=== PATIENT | female | born 1955 | race African-American/Black ===

== ENCOUNTER 2022-07-23 08:48 | Inpatient (IN) | payer MEDICARE, MEDICAID ==
[~2022-07-23] VITALS: Ht 157.5 cm; Wt 79.6 kg
[2022-07-23] MEDS ORDERED: ONDANSETRON HCL 4MG/2ML INJ IV STA (09:06)
[2022-07-23] MEDS ORDERED: SODIUM CHLORIDE 0.9% 1,000 ML IV ONE ×2 (09:15→11:30)
[2022-07-23 10:28] LABS: BASOPHILS % 0.5 % (0.0-2.0); EOSINOPHILS % 1.1 % (0.0-5.0); HEMATOCRIT. 36.1 % (36.0-48.0); HEMOGLOBIN. 11.5 g/dL (12.0-16.0); LYMPHOCYTES % 15.1 % (20.0-50.0); MEAN CORPUSCULAR HEMOGLOBIN 27.3 pg (28.0-32.0); MEAN CORPUSCULAR VOLUME 85.7 fL (81.0-99.0); MEAN PLATELET VOLUME 7.9 fl (7.4-10.4); MONOCYTES % 7.1 % (2.0-8.0); NEUTROPHILS % 76.2 % (40.0-76.0); PLATELET 251 x1000/uL (130-400); RED BLOOD CELL COUNT 4.21 mill/uL (4.2-5.4); RED CELL DISTRIBUTION WIDTH 14.7 % (11.6-14.6)
[2022-07-23 10:37] LABS: CHLORIDE 108 mEq/L (98-107)
[2022-07-23] MEDS ORDERED: ASPIRIN 325MG EC TABLET PO ONE (11:30)
[2022-07-23] MEDS ORDERED: MECLIZINE 25MG TABLET PO ONE (11:30)
[2022-07-23] MEDS ORDERED: ONDANSETRON 4MG ODT PO STA (11:30)
[2022-07-23 12:53] LABS: CLARITY URINE CLOUDY (CLEAR); COLOR URINE YELLOW (YELLOW); KETONES URINE NEGATIVE (NEGATIVE); LEUKOCYTE ESTERASE URINE TRACE (NEGATIVE); NITRITE URINE NEGATIVE (NEGATIVE); OCCULT BLOOD URINE NEGATIVE (NEGATIVE); PH URINE 7.5 (4.5-8.0); PROTEIN URINE TRACE (NEGATIVE); SPECIFIC GRAVITY URINE 1.022 (1.005-1.030); UROBILINOGEN URINE 0.2 E.U./dL (0.2-1.0)
[2022-07-23] MEDS ORDERED: ONDANSETRON 4MG ODT PO SCH (14:15)
[2022-07-23] MEDS ORDERED: ASPIRIN 325MG EC TABLET PO SCH (14:15)
[2022-07-23] MEDS ORDERED: MECLIZINE 25MG TABLET PO SCH (14:15)
[2022-07-23 15:06] VITALS: BP 155/102
[2022-07-23] MEDS ORDERED: ATOR10TA69 PO (15:25)
[2022-07-23] MEDS ORDERED: LOSA25TA26 PO (15:25)
[2022-07-23] MEDS ORDERED: TOPUD PO (15:25)
[2022-07-23] MEDS ORDERED: ASPI-1497 PO (15:25)
[2022-07-23] MEDS ORDERED: METF-414 PO (15:25)
[2022-07-23 15:58] VITALS: BP 151/75
[2022-07-23] MEDS ORDERED: MAGNESIUM/ALUMINUM HYDROXIDE/SIMETHICONE 30ML UDC PO PRN (18:45)
[2022-07-23] MEDS ORDERED: CLONIDINE 0.1MG TABLET PO PRN (18:45)
[2022-07-23] MEDS ORDERED: GUAIFENESIN 200MG/10ML SUGAR FREE UDC PO PRN (18:45)
[2022-07-23] MEDS ORDERED: ACETAMINOPHEN 325MG TABLET PO PRN ×2 (18:45)
[2022-07-23] MEDS ORDERED: IPRATROPIUM/ALBUTEROL 0.5-3(2.5)MG/3ML NEB HHN PRN (18:45)
[2022-07-23] MEDS ORDERED: ONDANSETRON HCL 4MG/2ML INJ IV PRN (18:45)
[2022-07-23] MEDS ORDERED: NALOXONE HCL 0.4MG/ML VIAL IV PRN (19:00)
[2022-07-23 20:00] VITALS: BP 119/67
[2022-07-23] MEDS: ENOXAPARIN 30MG/0.3ML SYR SUBCUT SCH (20:36)
[2022-07-23] MEDS: HYDROCODONE/ACETAMINOPHEN 5/325MG TABLET PO PRN (20:36)
[2022-07-24] VITALS: BP 108/59
[2022-07-24 04:00] VITALS: BP 113/58
[2022-07-24 08:00] VITALS: BP 137/76
[2022-07-24 08:17] LABS: BASOPHILS % 0.5 % (0.0-2.0); EOSINOPHILS % 2.4 % (0.0-5.0); HEMATOCRIT. 34.7 % (36.0-48.0); HEMOGLOBIN. 11.3 g/dL (12.0-16.0); LYMPHOCYTES % 31.9 % (20.0-50.0); MEAN CORPUSCULAR HEMOGLOBIN 27.8 pg (28.0-32.0); MEAN CORPUSCULAR VOLUME 85.6 fL (81.0-99.0); MEAN PLATELET VOLUME 8.4 fl (7.4-10.4); MONOCYTES % 8.6 % (2.0-8.0); NEUTROPHILS % 56.6 % (40.0-76.0); PLATELET 257 x1000/uL (130-400); RED BLOOD CELL COUNT 4.06 mill/uL (4.2-5.4)
[2022-07-24 08:20] LABS: CHLORIDE 109 mEq/L (98-107)
[2022-07-24 08:35] LABS: PHOSPHORUS 3.6 mg/dL (2.5-4.9); T4 FREE 0.95 ng/dL (0.76-1.46); TOTAL IRON BINDING CAPACITY 250 ug/dL (250-450)
[2022-07-24] MEDS: ENOXAPARIN 30MG/0.3ML SYR SUBCUT SCH ×2 (09:18→20:13)
[2022-07-24 12:00] VITALS: BP 141/60
[2022-07-24 15:20] LABS: FERRITIN 36 ng/mL (10-291)
[2022-07-24 16:00] VITALS: BP 133/64
[2022-07-24 16:34] LABS: FOLIC ACID (FOLATE) SERUM > 20.00 ng/mL (>5.38)
[2022-07-24] MEDS ORDERED: GADOTERATE MEGLUMINE 5 MMOL/10 ML VIAL IV ONE (19:07)
[2022-07-24 20:00] VITALS: BP 143/74
[2022-07-24] MEDS: HYDROCODONE/ACETAMINOPHEN 5/325MG TABLET PO PRN (20:34)
[2022-07-25] VITALS: BP 130/53
[2022-07-25 04:00] VITALS: BP 137/67
[2022-07-25 07:34] LABS: BASOPHILS % 0.5 % (0.0-2.0); EOSINOPHILS % 2.5 % (0.0-5.0); HEMATOCRIT. 35.6 % (36.0-48.0); HEMOGLOBIN. 11.5 g/dL (12.0-16.0); LYMPHOCYTES % 25.6 % (20.0-50.0); MEAN CORPUSCULAR HEMOGLOBIN 27.4 pg (28.0-32.0); MEAN PLATELET VOLUME 8.3 fl (7.4-10.4); MONOCYTES % 8.6 % (2.0-8.0); NEUTROPHILS % 62.8 % (40.0-76.0); PLATELET 277 x1000/uL (130-400); RED BLOOD CELL COUNT 4.19 mill/uL (4.2-5.4); RED CELL DISTRIBUTION WIDTH 14.8 % (11.6-14.6)
[2022-07-25 08:00] VITALS: BP 137/72
[2022-07-25] MEDS: ENOXAPARIN 30MG/0.3ML SYR SUBCUT SCH ×2 (09:01→20:25)
[2022-07-25 09:02] LABS: CHLORIDE 108 mEq/L (98-107)
[2022-07-25 09:06] LABS: ALPHA-1-GLOBULIN 0.2 g/dL (0.0-0.4); ALPHA-2-GLOBULIN 0.8 g/dL (0.4-1.0); BETA GLOBULIN 1.1 g/dL (0.7-1.3); GAMMA GLOBULINS 0.9 g/dL (0.4-1.8); M-SPIKE Not Observed g/dL (Not Observed)
[2022-07-25] MEDS: LOSARTAN POTASSIUM 25 MG TABLET PO SCH (11:45)
[2022-07-25 12:00] VITALS: BP 143/72
[2022-07-25 16:00] VITALS: BP 119/54
[2022-07-25 20:00] VITALS: BP 127/66
[2022-07-25] MEDS: ATORVASTATIN CALCIUM 10MG TABLET PO SCH (20:25)
[2022-07-25] MEDS: CLOPIDOGREL 75MG TABLET PO SCH (20:52)
[2022-07-25] MEDS: ASPIRIN 81MG EC TABLET PO SCH (20:52)
[2022-07-26] VITALS (7 sets, daily range): BP systolic 118–141; BP diastolic 58–77
[2022-07-26] MEDS: ENOXAPARIN 30MG/0.3ML SYR SUBCUT SCH ×2 (09:53→20:04)
[2022-07-26] MEDS: ASPIRIN 81MG EC TABLET PO SCH (09:54)
[2022-07-26] MEDS: LOSARTAN POTASSIUM 25 MG TABLET PO SCH (09:54)
[2022-07-26] MEDS: CLOPIDOGREL 75MG TABLET PO SCH (09:54)
[2022-07-26 13:07] LABS: ANA IFA Negative (.)
[2022-07-26 18:46] LABS: VITAMIN B12 SERUM > 2000 pg/mL (211-911)
[2022-07-26] MEDS: ATORVASTATIN CALCIUM 10MG TABLET PO SCH (20:04)
== END 2022-07-26 21:12 | DRG 66 ==
LOC: ER 09:16 → EDBEDREQTM 13:34 → EDBEDREQ 13:34 → ENRESERV 14:24 → 8WST 15:05
PROVIDERS: ADMIT Internal Medicine; ATTEND Internal Medicine
DX: I63.81 Other cerebral infarction due to occlusion or stenosis of small artery (principal); H49.02 Third [oculomotor] nerve palsy, left eye; G90.8 Other disorders of autonomic nervous system; R11.2 Nausea with vomiting, unspecified; I10 Essential (primary) hypertension; E11.9 Type 2 diabetes mellitus without complications; E78.00 Pure hypercholesterolemia, unspecified; M17.0 Bilateral primary osteoarthritis of knee; H53.8 Other visual disturbances; H53.2 Diplopia; R29.702 NIHSS score 2
CPT/HCPCS: 36415; 70553; 71045; 80048; 80053; 80061; 81003; 82607; 82728; 82746; 82962; 83540; 83550; 83735; 84100; 84155; 84165; 84439; 84443; 84484; 85025; 85651; 86256; 93005; 93880; 97116; 97162; 97530; 99285; A9577; J1650; J2405; J7030; J8597; Q0162

== ENCOUNTER 2022-07-26 21:05 | Inpatient (IN) | payer MEDICARE, MEDICAID ==
[~2022-07-26] VITALS: Ht 157.5 cm; Wt 79.6 kg
[2022-07-26 21:05] VITALS: BP 139/70
[~2022-07-26 21:05] MED LIST: ASPI-1497 PO; ATOR10TA69 PO; LOSA25TA26 PO; METF-414 PO; TOPUD PO
[2022-07-26 21:10] VITALS: BP 111/57
[2022-07-27] MEDS ORDERED: ONDANSETRON HCL 4MG/2ML INJ IV PRN
[2022-07-27] MEDS ORDERED: NALOXONE HCL 0.4 MG/ML 1ML VIAL IV PRN
[2022-07-27] MEDS ORDERED: CLONIDINE 0.1MG TABLET PO PRN
[2022-07-27] MEDS ORDERED: IPRATROPIUM/ALBUTEROL 0.5-3(2.5)MG/3ML NEB HHN PRN
[2022-07-27] MEDS ORDERED: ACETAMINOPHEN 325MG TABLET PO PRN ×2
[2022-07-27] MEDS ORDERED: MAGNESIUM/ALUMINUM HYDROXIDE/SIMETHICONE 30ML UDC PO PRN
[2022-07-27] MEDS ORDERED: HYDROCODONE/ACETAMINOPHEN 5/325MG TABLET PO PRN
[2022-07-27 06:54] LABS: BASOPHILS % 0.4 % (0.0-2.0); EOSINOPHILS % 3.1 % (0.0-5.0); HEMOGLOBIN. 12.3 g/dL (12.0-16.0); LYMPHOCYTES % 17.2 % (20.0-50.0); MEAN CORPUSCULAR HEMOGLOBIN 27.6 pg (28.0-32.0); MEAN CORPUSCULAR VOLUME 85.4 fL (81.0-99.0); MEAN PLATELET VOLUME 7.8 fl (7.4-10.4); MONOCYTES % 10.3 % (2.0-8.0); PLATELET 291 x1000/uL (130-400); RED BLOOD CELL COUNT 4.45 mill/uL (4.2-5.4); RED CELL DISTRIBUTION WIDTH 14.4 % (11.6-14.6)
[2022-07-27 07:59] LABS: CHLORIDE 108 mEq/L (98-107)
[2022-07-27 08:00] VITALS: BP 150/71
[2022-07-27] MEDS ORDERED: ENOXAPARIN 30MG/0.3ML SYR SUBCUT SCH (09:00)
[2022-07-27] MEDS: ASPIRIN 81MG EC TABLET PO SCH (09:32)
[2022-07-27] MEDS: LOSARTAN POTASSIUM 25 MG TABLET PO SCH (09:32)
[2022-07-27 12:00] VITALS: BP 128/75
[2022-07-27] MEDS: DOCUSATE SODIUM 100MG CAPSULE PO SCH ×2 (14:00→17:00)
[2022-07-27 16:00] VITALS: BP 122/79
[2022-07-27] MEDS ORDERED: NON FORMULARY PATIENT HOME MED XX SCH (19:00)
[2022-07-27 20:00] VITALS: BP 139/71
[2022-07-27] MEDS: ATORVASTATIN CALCIUM 10MG TABLET PO SCH (20:35)
[2022-07-27] MEDS: ENOXAPARIN 40MG/0.4ML SYR SUBCUT SCH (20:36)
[2022-07-27] MEDS: CLOPIDOGREL 75MG TABLET PO SCH (20:36)
[2022-07-27] MEDS: MELATONIN 3MG TABLET PO SCH (20:36)
[2022-07-27] MEDS ORDERED: ATORVASTATIN CALCIUM 10MG TABLET PO SCH (21:00)
[2022-07-28 08:00] VITALS: BP 135/68
[2022-07-28] MEDS: CLOPIDOGREL 75MG TABLET PO SCH (10:18)
[2022-07-28] MEDS: ASPIRIN 81MG EC TABLET PO SCH (10:18)
[2022-07-28] MEDS: LOSARTAN POTASSIUM 25 MG TABLET PO SCH (10:18)
[2022-07-28] MEDS: DOCUSATE SODIUM 100MG CAPSULE PO SCH ×2 (10:18→17:46)
[2022-07-28 20:03] VITALS: BP 117/73
[2022-07-28] MEDS: ENOXAPARIN 40MG/0.4ML SYR SUBCUT SCH (20:26)
[2022-07-28] MEDS: ATORVASTATIN CALCIUM 10MG TABLET PO SCH (20:26)
[2022-07-29] MEDS: MELATONIN 3MG TABLET PO SCH (00:02)
[2022-07-29 08:00] VITALS: BP 111/60
[2022-07-29] MEDS: LOSARTAN POTASSIUM 25 MG TABLET PO SCH (09:24)
[2022-07-29] MEDS: ASPIRIN 81MG EC TABLET PO SCH (09:24)
[2022-07-29] MEDS: CLOPIDOGREL 75MG TABLET PO SCH (09:24)
[2022-07-29] MEDS: DOCUSATE SODIUM 100MG CAPSULE PO SCH ×2 (09:24→17:00)
[2022-07-29 20:00] VITALS: BP 110/65
[2022-07-29] MEDS: ATORVASTATIN CALCIUM 10MG TABLET PO SCH (20:41)
[2022-07-29] MEDS: ENOXAPARIN 40MG/0.4ML SYR SUBCUT SCH (20:41)
[2022-07-30] MEDS: MELATONIN 3MG TABLET PO SCH (03:00)
[2022-07-30] MEDS: GUAIFENESIN 200MG/10ML SUGAR FREE UDC PO PRN (03:00)
[2022-07-30 08:00] VITALS: BP 118/69
[2022-07-30] MEDS: ASPIRIN 81MG EC TABLET PO SCH (09:21)
[2022-07-30] MEDS: DOCUSATE SODIUM 100MG CAPSULE PO SCH ×2 (09:21→17:00)
[2022-07-30] MEDS: CLOPIDOGREL 75MG TABLET PO SCH (09:21)
[2022-07-30] MEDS: LOSARTAN POTASSIUM 25 MG TABLET PO SCH (09:21)
[2022-07-30 20:00] VITALS: BP 118/70
[2022-07-30] MEDS: ATORVASTATIN CALCIUM 10MG TABLET PO SCH (21:18)
[2022-07-30] MEDS: ENOXAPARIN 40MG/0.4ML SYR SUBCUT SCH (21:18)
[2022-07-31] MEDS: GUAIFENESIN 200MG/10ML SUGAR FREE UDC PO PRN (01:35)
[2022-07-31] MEDS: MELATONIN 3MG TABLET PO SCH (01:35)
[2022-07-31 06:57] LABS: CHLORIDE 109 mEq/L (98-107)
[2022-07-31 07:00] LABS: BASOPHILS % 0.7 % (0.0-2.0); EOSINOPHILS % 2.7 % (0.0-5.0); HEMOGLOBIN. 12.2 g/dL (12.0-16.0); LYMPHOCYTES % 33.1 % (20.0-50.0); MEAN CORPUSCULAR HEMOGLOBIN 27.2 pg (28.0-32.0); MEAN CORPUSCULAR VOLUME 85.1 fL (81.0-99.0); MEAN PLATELET VOLUME 8.4 fl (7.4-10.4); MONOCYTES % 13.3 % (2.0-8.0); NEUTROPHILS % 50.2 % (40.0-76.0); PLATELET 251 x1000/uL (130-400); RED BLOOD CELL COUNT 4.47 mill/uL (4.2-5.4); RED CELL DISTRIBUTION WIDTH 14.6 % (11.6-14.6)
[2022-07-31 07:02] LABS: PHOSPHORUS 4.4 mg/dL (2.5-4.9)
[2022-07-31 08:00] VITALS: BP 135/72
[2022-07-31] MEDS: CLOPIDOGREL 75MG TABLET PO SCH (08:30)
[2022-07-31] MEDS: ASPIRIN 81MG EC TABLET PO SCH (08:31)
[2022-07-31] MEDS: LOSARTAN POTASSIUM 25 MG TABLET PO SCH (08:31)
[2022-07-31] MEDS: DOCUSATE SODIUM 100MG CAPSULE PO SCH ×2 (08:31→16:48)
[2022-07-31 19:53] VITALS: BP 140/70
[2022-07-31] MEDS: ENOXAPARIN 40MG/0.4ML SYR SUBCUT SCH (21:09)
[2022-07-31] MEDS: ATORVASTATIN CALCIUM 10MG TABLET PO SCH (21:10)
[2022-08-01] MEDS: MELATONIN 3MG TABLET PO SCH ×2 (00:41→22:37)
[2022-08-01 08:00] VITALS: BP 115/61
[2022-08-01] MEDS: DOCUSATE SODIUM 100MG CAPSULE PO SCH ×2 (08:15→17:00)
[2022-08-01] MEDS: ASPIRIN 81MG EC TABLET PO SCH (08:15)
[2022-08-01] MEDS: CLOPIDOGREL 75MG TABLET PO SCH (08:15)
[2022-08-01] MEDS: LOSARTAN POTASSIUM 25 MG TABLET PO SCH (08:15)
[2022-08-01 20:00] VITALS: BP 134/80
[2022-08-01] MEDS: ENOXAPARIN 40MG/0.4ML SYR SUBCUT SCH (22:37)
[2022-08-01] MEDS: ATORVASTATIN CALCIUM 10MG TABLET PO SCH (22:38)
[2022-08-02 08:00] VITALS: BP 122/74
[2022-08-02] MEDS: DOCUSATE SODIUM 100MG CAPSULE PO SCH ×2 (08:52→17:52)
[2022-08-02] MEDS: ASPIRIN 81MG EC TABLET PO SCH (08:52)
[2022-08-02] MEDS: CLOPIDOGREL 75MG TABLET PO SCH (08:52)
[2022-08-02] MEDS: LOSARTAN POTASSIUM 25 MG TABLET PO SCH (08:52)
[2022-08-02 12:00] VITALS: BP 134/75
[2022-08-02] MEDS: DICLOFENAC SODIUM 75MG DR (EC) TABLET PO SCH ×2 (13:54→20:50)
[2022-08-02 16:00] VITALS: BP 142/72
[2022-08-02 20:00] VITALS: BP 118/71
[2022-08-02] MEDS: MELATONIN 3MG TABLET PO SCH (20:49)
[2022-08-02] MEDS: ATORVASTATIN CALCIUM 10MG TABLET PO SCH (20:49)
[2022-08-02] MEDS: ENOXAPARIN 40MG/0.4ML SYR SUBCUT SCH (20:50)
[2022-08-03 08:00] VITALS: BP 130/81
[2022-08-03] MEDS: ASPIRIN 81MG EC TABLET PO SCH (09:06)
[2022-08-03] MEDS: DICLOFENAC SODIUM 75MG DR (EC) TABLET PO SCH (09:06)
[2022-08-03] MEDS: DOCUSATE SODIUM 100MG CAPSULE PO SCH (09:06)
[2022-08-03] MEDS: CLOPIDOGREL 75MG TABLET PO SCH (09:06)
[2022-08-03] MEDS: LOSARTAN POTASSIUM 25 MG TABLET PO SCH (09:07)
[2022-08-03] MEDS ORDERED: ATOR10TA PO (09:27)
[2022-08-03] MEDS ORDERED: MELA3TAB40 PO (09:27)
[2022-08-03] MEDS ORDERED: LOSA25TA26 PO (09:27)
[2022-08-03] MEDS ORDERED: CLOP75TA15 PO (09:27)
[2022-08-03] MEDS ORDERED: ASPI-1497 PO (09:27)
[2022-08-03] MEDS ORDERED: DICL75TA5 PO (09:27)
[2022-08-03] MEDS ORDERED: DOCU-150 PO (09:27)
[2022-08-03 10:51] VITALS: BP 130/81
== END 2022-08-03 12:55 | disposition home health service (06) | DRG 66 ==
PROVIDERS: ADMIT Psychiatry & Neurology Neurology; ATTEND Internal Medicine
DX: I63.81 Other cerebral infarction due to occlusion or stenosis of small artery (principal); E11.9 Type 2 diabetes mellitus without complications; E78.5 Hyperlipidemia, unspecified; F51.04 Psychophysiologic insomnia; I10 Essential (primary) hypertension; K59.00 Constipation, unspecified; M17.0 Bilateral primary osteoarthritis of knee; Z91.81 History of falling; F39 Unspecified mood [affective] disorder; Z86.73 Personal history of transient ischemic attack (TIA), and cerebral infarction without residual deficits; F01.50 Vascular dementia, unspecified severity, without behavioral disturbance, psychotic disturbance, mood disturbance, and anxiety; H49.00 Third [oculomotor] nerve palsy, unspecified eye
CPT/HCPCS: 36415; 73562; 80048; 82962; 83036; 83735; 84100; 85025; 92523; 93970; 97110; 97112; 97116; 97150; 97162; 97166; 97530; 97535; J1650

== ENCOUNTER 2023-02-14 14:14 | Emergency (ER) | payer MEDICARE, MEDICAID ==
[~2023-02-14] VITALS: Ht 157.5 cm; Wt 78.0 kg
[~2023-02-14 14:14] MED LIST changes: +ATOR10TA PO; -ATOR10TA69 PO; +CLOP75TA15 PO; +DICL75TA5 PO; +DOCU-150 PO; +MELA3TAB40 PO; -METF-414 PO
[2023-02-14 14:19] VITALS: BP 147/84
[2023-02-14 15:03] LABS: BASOPHILS % 0.5 % (0.0-2.0); EOSINOPHILS % 1.7 % (0.0-5.0); HEMATOCRIT. 39.1 % (36.0-48.0); HEMOGLOBIN. 12.4 g/dL (12.0-16.0); MEAN CORPUSCULAR HEMOGLOBIN 27.1 pg (28.0-32.0); MEAN CORPUSCULAR VOLUME 85.3 fL (81.0-99.0); MEAN PLATELET VOLUME 7.8 fl (7.4-10.4); MONOCYTES % 10.8 % (2.0-8.0); PLATELET 282 x1000/uL (130-400); RED BLOOD CELL COUNT 4.59 mill/uL (4.2-5.4)
[2023-02-14 15:14] LABS: CHLORIDE 105 mEq/L (98-107)
[2023-02-14 15:16] LABS: CLARITY URINE CLEAR (CLEAR); COLOR URINE DARK YELLOW (YELLOW); KETONES URINE TRACE (NEGATIVE); LEUKOCYTE ESTERASE URINE 2+ (NEGATIVE); NITRITE URINE NEGATIVE (NEGATIVE); OCCULT BLOOD URINE NEGATIVE (NEGATIVE); PH URINE 5.5 (4.5-8.0); PROTEIN URINE TRACE (NEGATIVE); SPECIFIC GRAVITY URINE 1.034 (1.005-1.030); UROBILINOGEN URINE 0.2 E.U./dL (0.2-1.0)
[2023-02-14] MEDS ORDERED: CEPH500C2 MT (19:38)
== END 2023-02-14 19:53 | disposition home or self-care (01) ==
LOC: ER 14:14
DX: N39.0 Urinary tract infection, site not specified (principal); I10 Essential (primary) hypertension; E78.00 Pure hypercholesterolemia, unspecified; E11.9 Type 2 diabetes mellitus without complications; Z68.31 Body mass index [BMI] 31.0-31.9, adult
CPT/HCPCS: 36415; 80053; 81003; 84484; 85025; 93005; 99284

== ENCOUNTER 2023-06-06 18:55 | Emergency (ER) | payer MEDICARE, MEDICAID ==
[~2023-06-06] VITALS: Ht 157.5 cm; Wt 79.0 kg
[~2023-06-06 18:55] MED LIST changes: +CEPH500C2 MT
[2023-06-06 19:08] VITALS: O2SAT 97
[2023-06-06 19:53] LABS: BASOPHILS % 0.4 % (0.0-2.0); EOSINOPHILS % 1.9 % (0.0-5.0); HEMATOCRIT. 41.2 % (36.0-48.0); HEMOGLOBIN. 13.3 g/dL (12.0-16.0); LYMPHOCYTES % 27.6 % (20.0-50.0); MEAN CORPUSCULAR HEMOGLOBIN 27.4 pg (28.0-32.0); MEAN CORPUSCULAR VOLUME 84.7 fL (81.0-99.0); MEAN PLATELET VOLUME 7.6 fl (7.4-10.4); MONOCYTES % 7.7 % (2.0-8.0); NEUTROPHILS % 62.4 % (40.0-76.0); PLATELET 256 x1000/uL (130-400); RED BLOOD CELL COUNT 4.87 mill/uL (4.2-5.4); RED CELL DISTRIBUTION WIDTH 15.3 % (11.6-14.6)
[2023-06-06 19:57] LABS: CHLORIDE 105 mEq/L (98-107)
[2023-06-06 21:32] LABS: CLARITY URINE CLEAR (CLEAR); COLOR URINE YELLOW (YELLOW); KETONES URINE NEGATIVE (NEGATIVE); LEUKOCYTE ESTERASE URINE 1+ (NEGATIVE); NITRITE URINE NEGATIVE (NEGATIVE); OCCULT BLOOD URINE NEGATIVE (NEGATIVE); PROTEIN URINE NEGATIVE (NEGATIVE); SPECIFIC GRAVITY URINE 1.016 (1.005-1.030); UROBILINOGEN URINE 0.2 E.U./dL (0.2-1.0)
[2023-06-06 21:51] VITALS: BP 161/75; PULSE 63; RESP 15; TEMP 97.9
== END 2023-06-06 21:53 | disposition home or self-care (01) ==
LOC: ER 18:55
DX: H53.8 Other visual disturbances (principal); E78.5 Hyperlipidemia, unspecified; I10 Essential (primary) hypertension; E11.9 Type 2 diabetes mellitus without complications; E78.00 Pure hypercholesterolemia, unspecified; Z98.890 Other specified postprocedural states
CPT/HCPCS: 36415; 71045; 80053; 81003; 84484; 85025; 93005; 99285

== ENCOUNTER 2023-08-18 16:18 | Emergency (ER) | payer MEDICARE, MEDICAID ==
[~2023-08-18] VITALS: Ht 157.5 cm; Wt 68.0 kg
[2023-08-18 16:32] VITALS: BP 151/72; O2SAT 97
[2023-08-18] MEDS ORDERED: ACETAMINOPHEN 325MG TABLET PO STA (18:20)
[2023-08-18 18:51] LABS: BASOPHILS % 0.5 % (0.0-2.0); EOSINOPHILS % 2.1 % (0.0-5.0); HEMATOCRIT. 39.1 % (36.0-48.0); HEMOGLOBIN. 12.4 g/dL (12.0-16.0); LYMPHOCYTES % 24.1 % (20.0-50.0); MEAN CORPUSCULAR HEMOGLOBIN 27.1 pg (28.0-32.0); MEAN CORPUSCULAR HGB CONC 31.9 g/dL (31.0-37.0); MEAN CORPUSCULAR VOLUME 84.9 fL (81.0-99.0); MEAN PLATELET VOLUME 7.6 fl (7.4-10.4); MONOCYTES % 8.5 % (2.0-8.0); NEUTROPHILS % 64.8 % (40.0-76.0); PLATELET 289 x1000/uL (130-400)
[2023-08-18 19:16] LABS: CHLORIDE 108 mEq/L (98-107); INDEX HEMOLYSI 1 (1-3); INDEX ICTERIC 1 (1-4); INDEX LIPEMIC 1 (1-3); POTASSIUM 3.6 mEq/L (3.5-5.1); SODIUM 142 mEq/L (136-145)
[2023-08-18 19:24] LABS: ALANINE AMINOTRANSFERASE 27 IU/L (13-61); ALBUMIN 3.4 g/dL (3.4-5.0); ASPARTATE AMINOTRANSFERASE 17 IU/L (15-37); BILIRUBIN TOTAL 0.2 mg/dL (0.1-1.0); CALCIUM 8.7 mg/dL (8.5-10.1); CARBON DIOXIDE 32 mEq/L (21-32); CREATININE 0.8 mg/dL (0.6-1.3); GLUCOSE 116 mg/dL (70-105); PROTEIN TOTAL 7.5 g/dL (6.0-8.3); UREA NITROGEN BLOOD 14 mg/dL (7-21)
[2023-08-18] MEDS ORDERED: SULFAMETHOXAZOLE/TRIMETHOPRIM 800/160MG TABLET PO ONE (21:15)
[2023-08-18] MEDS ORDERED: CEFTRIAXONE SODIUM 1 G/VIAL IM ONE (21:15)
[2023-08-18] MEDS ORDERED: LIDOCAINE HCL 1% 20ML VIAL (Pyxis) INJ INFIL ONE (21:15)
[2023-08-18] MEDS ORDERED: IBUP-2028 MT (22:46)
[2023-08-18] MEDS ORDERED: SULF1TAB48 MT (22:46)
[2023-08-18] MEDS ORDERED: CEPH500C2 MT (22:46)
[2023-08-18 23:34] VITALS: PULSE 80; RESP 20; TEMP 98.2
== END 2023-08-18 23:44 | disposition home or self-care (01) ==
LOC: ER 16:18
DX: L03.115 Cellulitis of right lower limb (principal); M79.605 Pain in left leg; M79.604 Pain in right leg; E11.9 Type 2 diabetes mellitus without complications; I10 Essential (primary) hypertension; E78.00 Pure hypercholesterolemia, unspecified; Z90.49 Acquired absence of other specified parts of digestive tract; Z98.890 Other specified postprocedural states
CPT/HCPCS: 99285; 93970; 80053; 85025; 36415; 96372; J0696; J3490

== ENCOUNTER 2023-09-22 13:55 | Emergency (ER) | payer MEDICARE, MEDICAID ==
[~2023-09-22] VITALS: Ht 157.5 cm; Wt 80.0 kg
[~2023-09-22 13:55] MED LIST changes: +IBUP-2028 MT; +SULF1TAB48 MT
[2023-09-22 14:35] VITALS: O2SAT 100
[2023-09-22 14:46] LABS: BASOPHILS % 0.4 % (0.0-2.0); EOSINOPHILS % 2.2 % (0.0-5.0); HEMATOCRIT. 38.1 % (36.0-48.0); HEMOGLOBIN. 12.1 g/dL (12.0-16.0); MEAN CORPUSCULAR HEMOGLOBIN 27.3 pg (28.0-32.0); MEAN CORPUSCULAR HGB CONC 31.8 g/dL (31.0-37.0); MEAN CORPUSCULAR VOLUME 85.8 fL (81.0-99.0); MEAN PLATELET VOLUME 8.1 fl (7.4-10.4); MONOCYTES % 9.7 % (2.0-8.0); NEUTROPHILS % 64.7 % (40.0-76.0); PLATELET 286 x1000/uL (130-400); RED BLOOD CELL COUNT 4.44 mill/uL (4.2-5.4); RED CELL DISTRIBUTION WIDTH 14.7 % (11.6-14.6); WHITE BLOOD COUNT 6.6 x1000/uL (4.5-11.0)
[2023-09-22 14:53] LABS: CHLORIDE 106 mEq/L (98-107); INDEX HEMOLYSI 1 (1-3); INDEX ICTERIC 1 (1-4); INDEX LIPEMIC 1 (1-3); POTASSIUM 3.8 mEq/L (3.5-5.1); SODIUM 140 mEq/L (136-145)
[2023-09-22 15:01] LABS: ALANINE AMINOTRANSFERASE 30 IU/L (13-61); ALBUMIN 3.4 g/dL (3.4-5.0); ASPARTATE AMINOTRANSFERASE 22 IU/L (15-37); BILIRUBIN TOTAL 0.2 mg/dL (0.1-1.0); CALCIUM 9.3 mg/dL (8.5-10.1); CARBON DIOXIDE 31 mEq/L (21-32); CREATININE 0.8 mg/dL (0.6-1.3); GLUCOSE 136 mg/dL (70-105); PROTEIN TOTAL 7.2 g/dL (6.0-8.3); UREA NITROGEN BLOOD 12 mg/dL (7-21)
[2023-09-22 16:46] VITALS: BP 137/80; PULSE 75; RESP 16; TEMP 98.5
== END 2023-09-22 16:48 | disposition home or self-care (01) ==
LOC: ER 13:55
DX: L98.8 Other specified disorders of the skin and subcutaneous tissue (principal); E11.9 Type 2 diabetes mellitus without complications; E78.00 Pure hypercholesterolemia, unspecified; I10 Essential (primary) hypertension; Z90.49 Acquired absence of other specified parts of digestive tract; Z98.890 Other specified postprocedural states
CPT/HCPCS: 36415; 80053; 85025; 99283